=== PATIENT | male | born 1975 | race Caucasian/White ===

== ENCOUNTER 2025-03-06 10:32 | Emergency (ER) | payer OTHER, SELFPAY ==
[2025-03-06 10:35] VITALS: BP 136/85; PULSE 73; RESP 20; TEMP 36.7; O2SAT 97
--- NOTE | 2025-03-06 10:45 | DI.RAD_ITS ---
Exam(s) XR FOOT LT COMPLETE EXAM: XR FOOT LT COMPLETE CLINICAL HISTORY: pain s/p fall 2 days ago. TECHNIQUE: 2D digital imaging was performed. Three views. COMPARISON: No exams were available for comparison FINDINGS: BONES: No acute fracture is present. No bony destructive lesion is seen. JOINTS: No dislocation present. Mild degenerative changes of the 1st MTP joint. Mild spurring at the dorsum of the talus. SOFT TISSUE: Normal. IMPRESSION: Mild degenerative changes. No acute abnormality. DATA REPOSITORY: RADIATION DOSE DELIVERED:
--- NOTE | 2025-03-06 10:45 | DI.RAD_ITS ---
Exam(s) XR ANKLE LT COMPLETE EXAM: XR ANKLE LT COMPLETE CLINICAL HISTORY: pain s/p fall 2 days ago TECHNIQUE: 2D digital imaging was performed. Three views. COMPARISON: No exams were available for comparison FINDINGS: BONES: No acute fracture is present. No bony destructive lesion is seen. JOINTS:The ankle mortise is normally aligned. No joint space narrowing. Mild spurring at the dorsal aspect of talus. SOFT TISSUE: Normal. IMPRESSION: No acute abnormality. DATA REPOSITORY: RADIATION DOSE DELIVERED:
--- NOTE | 2025-03-06 10:49 | ED.GENADUL_ITS ---
Discharge Plan Disposition Patient Disposition: Home Condition: Stable Discharge Details Clinical Impression: Achilles tendon injury, Contusion of foot, left Primary Care Provider: Daniela,Local ED Provider: Devan Lubin Home Meds and New Rx's Prescriptions: No Action No Known Home Meds Discharge Instructions Additional Instructions: Your x-rays did not show any fractures. Based on your exam you likely have a Achilles tendon rupture. Dr. Lawrence from orthopedics evaluated you and also felt it is a Achilles tendon rupture. We placed you in a splint, please use the crutches to keep weight off your left foot. Follow-up with orthopedics when you return home. You can take 1000 mg of acetaminophen and 600 mg of ibuprofen every 6 hours as needed. If you feel more ill or have severe worsening pain return to the emergency department for reevaluation. Keeping your leg elevated when you are standing or laying down can help with swelling. Stand Alone Forms: Portal Information HPI General Mode of arrival: ambulatory . Date/Time Provider Initiated Documentation: 03/06/25 10:35 . Limitations to Documentation: no limitations . Information obtained by: patient . History of Present Illness 49 year old M presents to the emergency department with the chief complaint of left ankle/foot pain, described as moderate, Quality is described as aching, and is localized to the left and lower extremity. Patient reports no radiation. Patient started experiencing this day(s) (2) and it has been constant. Rest improves symptom(s), Movement worsens symptoms . Patient notes no other symptoms.. Patient did receive the following treatments prior to arrival, none Related Data Home Medications ?Medication ?Instructions ?Recorded ?Confirmed Unknown [No Known Home Meds] 03/06/25 1 Allergies Allergy/AdvReac Type Severity Reaction Status Date / Time No Known Allergies Allergy Unverified 03/06/25 10:38 General Stated Complaint: Orthopedic ARIE: 4 Review of Systems All systems reviewed & are unremarkable except as noted in HPI and below Cardiovascular Cardiovascular: Denies chest pain and Denies dyspnea Respiratory Respiratory: Denies dyspnea Gastrointestinal Gastrointestinal: Denies abdominal pain and Denies vomiting Exam Const General: no acute distress Orientation: alert HENME Head: normal to inspection Ears: external ears normal General nose exam: external nose normal Mouth: moist mucous membranes Eyes General: appearance normal, both eyes and all related structures Neck Neck: normal visual inspection Resp Effort & Inspection: normal respiratory effort and able to speak in complete sentences Cardio Rate: regular rate Skin General skin exam: no rashes or lesions noted Neuro General: patient alert and patient oriented x3 Extrem General: capillary refill normal Psych Mental Status: mental status grossly normal Course Vital Signs Vital signs: Vital Signs Temperature 36.7 C 03/06/25 10:35 Pulse 73 03/06/25 10:35 Respiratory Rate 20 03/06/25 10:35 Blood Pressure 136/85 03/06/25 10:35 Pulse Oximetry 97 03/06/25 10:35 Temperature 36.7 C 03/06/25 10:35 Pulse 73 03/06/25 10:35 Respiratory Rate 20 03/06/25 10:35 Blood Pressure 136/85 03/06/25 10:35 Blood Pressure Position Sitting 03/06/25 10:35 Pulse Oximetry 97 03/06/25 10:35 Oxygen Delivery Method Room Air 03/06/25 10:35 Oxygen Flow Rate 0 03/06/25 10:35 Medical Decision Making 49-year-old male who denies any chronic medical problems comes in with left ankle and foot pain after he fell skiing 2 days ago. He says he was going down a trail when went over an icy patch and lost control and fell. He was wearing a helmet and states she has no headache or neck pain. Denies any chest or abdomen pain. No back pain. No arm pain. He has tenderness in the posterior left ankle and lateral ankle, also has tenderness in the lateral midfoot. He has intact sensation and pulses. He does have full range of motion of the ankle though has pain at the posterior portion of the ankle. When I squeeze his calf there is not plantarflexion. Concern for fracture and Achilles tendon injury. Will start with x-rays and see if MRI would be able to perform an MRI of his ankle while he is here. Patient's x-ray unremarkable, MRI would not be able to fit him in until the end of the day. I did consult orthopedist Dr. Lawrence who examined the patient and feels that the tenderness likely ruptured. He recommended plantarflexed splint and nonweightbearing and he can follow-up with orthopedics when he returns home to the [facility]. Return precautions given Differential Diagnosis Differential Diagnosis: strain, fracture, contusion PFSH All Active Problems (Updated 12/30/25 @ 12:24 by Devan Lubin MD) Contusion of foot, left (Acute) Achilles tendon injury (Acute) Social History Smoking risk assessment performed?: No PAWSS Have you Been Recently Intoxicated or Drunk Within the Last 30 days?: No Have you Ever Experienced Previous Episodes of Alcohol Withdrawal?: No Have you ever Experienced Withdrawal Seizures?: No Have you ever Experienced Delirium Tremens(DT)s?: No Have you ever undergone Alcohol Rehabilitation Treatment (i.e, inpt ot outpatient treatment programs)?: No Have you ever Experienced Blackouts?: No Have you ever Combined Alcohol with other Downers within the last 90 days?: No Have you ever Combined Alcohol with any other Substance of Abuse during the last 90 days?: No Positive Blood Alcohol level on Presentation? [PCS.BAL]: No Evidence of Increased Autonomic Activity (i.e. HR>120, tremor, sweating, agitation, nausea)?: No Result: 0
[2025-03-06 11:41] VITALS: BP 146/88; PULSE 67; RESP 18; O2SAT 95
[2025-03-06 12:31] VITALS: BP 153/84; PULSE 71; RESP 18; O2SAT 95
== END 2025-03-06 12:36 | disposition home or self-care (01) ==
LOC: ER 12:39
PROVIDERS: Emergency Provider Emergency Medicine
DX: S90.32XA Contusion of left foot, initial encounter (principal); S86.002A Unspecified injury of left Achilles tendon, initial encounter; V00.321A Fall from snow-skis, initial encounter
CPT/HCPCS: 99283; 99284; 29515; 73610; 73630